=== PATIENT | female | born 1970 | race Caucasian/White ===

== ENCOUNTER 2019-07-14 08:58 | Emergency (ER) | payer BC ==
[~2019-07-14] VITALS: Ht 170.2 cm; Wt 54.0 kg
[2019-07-14 09:41] VITALS: BP 156/81
[2019-07-14] MEDS ORDERED: CITA10TA4 PO (09:44)
[2019-07-14] MEDS ORDERED: HYDR25CA PO (09:44)
[2019-07-14] MEDS ORDERED: ASPI1TAB31 PO (09:44)
[2019-07-14] MEDS ORDERED: OMEP20TA63 PO (09:44)
[2019-07-14] MEDS: CLINDAMYCIN HCL 150 MG CAPSULE. PO ONE (10:28)
[2019-07-14] MEDS: DIPHTH,PERTUSS(ACELL),TET TOX 0.5 ML DISP.SYRIN. VAX IM ONE (10:29)
[2019-07-14] MEDS: LIDOCAINE 2%/EPI 1:100,000 20 ML VIAL. IJ ONE (10:33)
[2019-07-14] MEDS ORDERED: NEOMY/BACITR/POLYMYXIN OINT PACKET. TP ONE (10:49)
[2019-07-14] MEDS: NEOMY/BACITR/POLYMYXIN OINT PACKET. TP ONE (10:52)
[2019-07-14] MEDS ORDERED: MUPI22OI2 TP (10:53)
[2019-07-14] MEDS ORDERED: CLIN300C8 PO (10:53)
--- NOTE | 2019-07-14 10:53 | PHYS DOC ---
Past Medical History Past Medical History: Anxiety, GERD, Other Past Surgical History: Hysterectomy, Other Additional Past Surgical Histo: ear tubes Alcohol Use: None Drug Use: None Adult General Chief Complaint Chief Complaint: ABSCESS HPI HPI Patient is a 48 year old female with history of MRSA abscess who presents with head abscess. Pt reports it has been there since last Friday. She also has some pain in the lateroposterior neck area. Pt took exedrin without any improvement. Some of the abscess has drained last night. She denies any other constituitional symptoms. Review of Systems Review of Systems Constitutional: Denies fever or chills Eyes: Denies redness or eye pain HENT: Denies nasal congestion or sore throat Respiratory: Denies cough or shortness of breath Cardiovascular: Denies chest pain or palpitations GI: Denies abdominal pain, nausea, or vomiting : Denies dysuria or hematuria Musculoskeletal: Denies back pain or joint pain Integument: Denies rash. Positive for abscess. Neurologic: Denies headache, focal weakness or sensory changes Complete systems were reviewed and found to be within normal limits, except as documented in this note. Current Medications Current Medications Current Medications Medications (Trade) Dose Ordered Sig/Constance Start Time Stop Time Status Last Admin Dose Admin Clindamycin HCl (Cleocin) 450 mg 1X ONCE 07/14/19 10:30 07/14/19 10:31 DC 07/14/19 10:28 450 MG Diphtheria/ Tetanus/Acell Pertussis (Boostrix) 0.5 ml ONCE ONCE 07/14/19 10:30 07/14/19 10:31 DC 07/14/19 10:29 0.5 ML Lidocaine/ Epinephrine (LIDOCAINE 2%-EPI 1:100,000 multi-dose) 20 ml 1X ONCE 07/14/19 10:30 07/14/19 10:31 DC 07/14/19 10:33 20 ML Neomycin/ Polymyxin/ Bacitracin (Triple Antibiotic Ointment) 1 pkt STK-MED ONCE 07/14/19 10:49 07/14/19 10:49 DC Allergies Allergies Allergies Coded Allergies Type Severity Reaction Last Updated Verified alcohol Allergy Mild skin irritation. 07/14/19 Yes Sulfa (Sulfonamide Antibiotics) Allergy Unknown 07/14/19 Yes doxycycline Allergy Unknown 07/14/19 Yes lanolin Allergy Unknown 07/14/19 Yes petrolatum,white Allergy Unknown 07/14/19 Yes Physical Exam Physical Exam Constitutional: Well developed, well nourished, no acute distress, non-toxic appearance HENT: Normocephalic, atraumatic, oropharynx moist, 1x2cm purulent abscess with erythema. Eyes: PERRL, EOMI, conjunctiva normal, no discharge Neck: Normal range of motion, posterior LAD, supple Cardiovascular: Heart rate normal, regular rhythm Lungs & Thorax: Bilateral breath sounds clear to auscultation, no wheezing Abdomen: Soft, no tenderness Skin: Warm, dry, no erythema, no rash Back: No tenderness, no CVA tenderness Extremities: No tenderness, ROM intact, no edema Neurologic: Alert and oriented X 3, normal motor function, normal sensory function, no focal deficits noted Psychologic: Affect normal, judgement normal, mood normal Current Patient Data Vital Signs Vital Signs Date Time Temp Pulse Resp B/P (MAP) Pulse Ox O2 Delivery O2 Flow Rate FiO2 07/14/19 09:41 98.2 109 16 156/81 (106) 99 Room Air 98.2 EKG EKG [] Radiology/Procedures Radiology/Procedures [] Course & Med Decision Making Course & Med Decision Making Pertinent Labs and Imaging studies reviewed. (See chart for details) Patient is a 48 year old female with history of MRSA abscess who presents with head abscess. Will drain and provide antiotics with pain control. Dispo: Discharge Dragon Disclaimer Dragon Disclaimer This electronic medical record was generated, in whole or in part, using a voice recognition dictation system. Incision and Drainage Incision and Drainage : Blade Size: 11 Progress Verbal consent obtained. Time out performed. Hand hygiene utilized. Anesthesia obtained via a 25-gauge hypodermic needle with (5) mL's of lidocaine 2% with epinephrine. Scalpel size: 11 Incision type: single straight Complexity: simple Drainage: purulent Drainage amount: minimal. Copious irrigation performed. Patient tolerated procedure well and without difficulty. Empiric antibiotic ointment applied prior to sterile dressing. Departure Departure Impression: Primary Impression: Abscess Disposition: 01 HOME, SELF-CARE Condition: STABLE Referrals: CARLOS MERAZ MD (PCP) Patient Instructions: Abscess, [id number] Scripts Clindamycin Hcl (CLINDAMYCIN HCL) 300 Mg Capsule 3 CAP PO TID, #21 CAP Prov: [place] MABRY DO 07/14/19 Mupirocin (MUPIROCIN OINTMENT) 22 Gm Oint...g. 1 KIKE TP TID for WOUND CARE, #1 TUBE Prov: NY MABRY DO 07/14/19 NY MABRY DO Jul 14, 2019 10:53
== END 2019-07-14 11:01 | disposition home or self-care (01) ==
LOC: ER 08:58
DX: L02.811 Cutaneous abscess of head [any part, except face] (principal); F41.9 Anxiety disorder, unspecified; K21.9 Gastro-esophageal reflux disease without esophagitis; Z90.710 Acquired absence of both cervix and uterus; Z98.890 Other specified postprocedural states; Z88.9 Allergy status to unspecified drugs, medicaments and biological substances; Z88.2 Allergy status to sulfonamides; Z88.1 Allergy status to other antibiotic agents; Z88.3 Allergy status to other anti-infective agents; Z88.4 Allergy status to anesthetic agent
CPT/HCPCS: 10060; 90471; 90715; 99283; J3490